=== PATIENT | female | born 1930 | race Caucasian/White ===

== ENCOUNTER 2016-04-25 17:41 | Inpatient (IN) | payer BC, OTHER ==
[~2016-04-25] VITALS: Ht 149.9 cm; Wt 63.5 kg
[~2016-04-25 17:41] MED LIST: ATENOLOL; BENAZEPRIL; LEVO500T15 PO
[2016-04-25] MEDS ORDERED: SODIUM CHLORIDE 0.9% 1,000 ML IV ONE (18:08)
[2016-04-25] MEDS ORDERED: MECLIZINE 25MG TABLET PO ONE (18:15)
[2016-04-25 18:51] LABS: BASOPHILS % 0.5 % (0.0-2.0); EOSINOPHILS % 2.2 % (0.0-5.0); HEMATOCRIT. 31.8 % (36.0-48.0); HEMOGLOBIN. 10.4 g/dL (12.0-16.0); LYMPHOCYTES % 15.7 % (20.0-50.0); MEAN CORPUSCULAR HEMOGLOBIN 28.3 pg (28.0-32.0); MEAN CORPUSCULAR HGB CONC 32.6 g/dL (31.0-37.0); MEAN PLATELET VOLUME 9.9 fl (7.4-10.4); MONOCYTES % 6.3 % (2.0-8.0); NEUTROPHILS % 75.3 % (40.0-76.0); PLATELET 164 x1000/uL (130-400); RED BLOOD CELL COUNT 3.66 mill/uL (4.2-5.4); RED CELL DISTRIBUTION WIDTH 14.6 % (11.6-14.6); WHITE BLOOD COUNT 5.4 x1000/uL (4.5-11.0)
[2016-04-25 18:55] LABS: CHLORIDE 111 mEq/L (98-107); INDEX HEMOLYSI 1 (1-3); INDEX ICTERIC 1 (1-4); INDEX LIPEMIC 1 (1-3)
[2016-04-25 19:04] LABS: ALANINE AMINOTRANSFERASE 17 IU/L (13-61); ALBUMIN 3.3 g/dL (3.4-5.0); ANION GAP 13; CALCIUM 8.8 mg/dL (8.5-10.1); CARBON DIOXIDE 24 mEq/L (21-32); ETHANOL BLOOD < 10 mg/dL; UREA NITROGEN BLOOD 35 mg/dL (7-21); eGFR 47 mL/min (>60)
[2016-04-25] MEDS ORDERED: ASPIRIN 325MG EC TABLET PO ONE (20:15)
[2016-04-25 21:51] LABS: GLUCOSE URINE TRACE (NEGATIVE); KETONES URINE NEGATIVE (NEGATIVE); LEUKOCYTE ESTERASE URINE NEGATIVE (NEGATIVE); NITRITE URINE NEGATIVE (NEGATIVE); OCCULT BLOOD URINE NEGATIVE (NEGATIVE); PH URINE 6.5 (4.5-8.0); PROTEIN URINE TRACE (NEGATIVE); SPECIFIC GRAVITY URINE 1.007 (1.005-1.030); UROBILINOGEN URINE 0.2 E.U./dL (0.2-1.0)
[2016-04-25 21:54] LABS: CLARITY URINE CLEAR (CLEAR); COLOR URINE STRAW (YELLOW)
[2016-04-25 22:05] LABS: *AMPHETAMINES SCREEN URINE NEGATIVE (NEGATIVE); *BARBITURATES SCREEN URINE NEGATIVE (NEGATIVE); *BENZODIAZEPINES SCREEN URINE NEGATIVE (NEGATIVE); *COCAINE SCREEN URINE NEGATIVE (NEGATIVE); CANNABINOID URINE SCREEN NEGATIVE (NEGATIVE); ECSTASY MDMA SCREEN URINE NEGATIVE (NEGATIVE); METHADONE URINE SCREEN NEGATIVE (NEGATIVE); OPIATES URINE SCREEN NEGATIVE (NEGATIVE); PHENCYCLIDINE URINE SCREEN NEGATIVE (NEGATIVE)
[2016-04-25 22:21] LABS: BACTERIA URINE NONE SEEN; RBC URINE 0-2 /hpf (0-2); SQUAMOUS EPITHELIAL CELL URINE RARE /lpf (RARE/1+); WBC URINE 0-2 /hpf (0-2)
[2016-04-25 23:45] VITALS: BP 140/55
[2016-04-26] VITALS (10 sets, daily range): BP systolic 106–162; BP diastolic 41–82
[2016-04-26] MEDS ORDERED: DEXTROSE 50% WATER 50ML SYRINGE IV PRN ×2 (00:15→04:15)
[2016-04-26] MEDS ORDERED: CLONIDINE 0.1MG TABLET PO PRN (00:15)
[2016-04-26] MEDS ORDERED: ACARBOSE PO (02:04)
[2016-04-26] MEDS ORDERED: GLIM1TAB2 PO (02:04)
[2016-04-26] MEDS ORDERED: HYDR-4134 PO (02:04)
[2016-04-26] MEDS ORDERED: PIOG30TA2 PO (02:04)
[2016-04-26] MEDS ORDERED: ASPI-1035 PO (02:04)
[2016-04-26] MEDS ORDERED: ATEN100T PO (02:04)
[2016-04-26] MEDS ORDERED: PLAVIX PO (02:04)
[2016-04-26] MEDS ORDERED: ATOR40TA70 PO (02:04)
[2016-04-26] MEDS ORDERED: GABA-531 PO (02:04)
[2016-04-26] MEDS ORDERED: VALS320T9 PO (02:04)
[2016-04-26] MEDS ORDERED: AMLO10TA80 PO (02:04)
[2016-04-26] MEDS: INSULIN LISPRO 100 UNITS/ML SUBCUT SCH ×4 (06:23→21:00)
[2016-04-26] MEDS: BLOOD SUGAR DIAGNOSTIC STRIP TEST SCH ×4 (06:23→21:00)
[2016-04-26] MEDS: HYDRALAZINE HCL 25MG TABLET PO SCH ×3 (06:50→21:25)
[2016-04-26 07:07] LABS: INDEX HEMOLYSI 1 (1-3); INDEX ICTERIC 1 (1-4); INDEX LIPEMIC 1 (1-3); IRON 42 ug/dL (50-175); TOTAL IRON BINDING CAPACITY 332 ug/dL (250-450)
[2016-04-26 07:25] LABS: INDEX HEMOLYSI 1 (1-3)
[2016-04-26 07:40] LABS: VITAMIN B12 SERUM 433 pg/mL (211-911)
[2016-04-26] MEDS ORDERED: INSULIN LISPRO 100 UNITS/ML SUBCUT SCH (08:20)
[2016-04-26] MEDS: AMLODIPINE 10MG TABLET PO SCH (09:00)
[2016-04-26] MEDS ORDERED: ATENOLOL 25MG TABLET PO SCH (09:00)
[2016-04-26] MEDS: ATENOLOL 100 MG TABLET PO SCH ×2 (09:00→21:25)
[2016-04-26] MEDS ORDERED: BLOOD SUGAR DIAGNOSTIC STRIP TEST SCH (09:00)
[2016-04-26] MEDS: CLOPIDOGREL 75MG TABLET PO SCH (10:09)
[2016-04-26] MEDS: ASPIRIN 81MG EC TABLET PO SCH (10:09)
[2016-04-26] MEDS: PIOGLITAZONE 30MG TABLET PO SCH (13:51)
[2016-04-26] MEDS: GLIMEPIRIDE 1MG TABLET PO SCH (13:51)
[2016-04-26] MEDS ORDERED: ATORVASTATIN CALCIUM 40MG TABLET PO SCH (17:00)
[2016-04-26] MEDS ORDERED: ATORVASTATIN CALCIUM 20MG TABLET PO SCH (21:00)
[2016-04-27] VITALS (10 sets, daily range): BP systolic 119–179; BP diastolic 47–86
[2016-04-27] MEDS: HYDRALAZINE HCL 25MG TABLET PO SCH (06:12)
[2016-04-27 06:23] LABS: BASOPHILS % 0.4 % (0.0-2.0); EOSINOPHILS % 3.4 % (0.0-5.0); HEMATOCRIT. 27.7 % (36.0-48.0); HEMOGLOBIN. 9.3 g/dL (12.0-16.0); LYMPHOCYTES % 28.9 % (20.0-50.0); MEAN CORPUSCULAR HEMOGLOBIN 29.3 pg (28.0-32.0); MEAN CORPUSCULAR HGB CONC 33.5 g/dL (31.0-37.0); MEAN CORPUSCULAR VOLUME 87.4 fL (81.0-99.0); MONOCYTES % 10.9 % (2.0-8.0); NEUTROPHILS % 56.4 % (40.0-76.0); PLATELET 140 x1000/uL (130-400); RED BLOOD CELL COUNT 3.17 mill/uL (4.2-5.4); RED CELL DISTRIBUTION WIDTH 14.9 % (11.6-14.6); WHITE BLOOD COUNT 4.4 x1000/uL (4.5-11.0)
[2016-04-27] MEDS: BLOOD SUGAR DIAGNOSTIC STRIP TEST SCH ×2 (06:30→12:12)
[2016-04-27] MEDS: INSULIN LISPRO 100 UNITS/ML SUBCUT SCH (07:20)
[2016-04-27 07:29] LABS: ALANINE AMINOTRANSFERASE 13 IU/L (13-61); ALBUMIN 2.7 g/dL (3.4-5.0); ANION GAP 13; CALCIUM 8.2 mg/dL (8.5-10.1); CARBON DIOXIDE 23 mEq/L (21-32); CHLORIDE 113 mEq/L (98-107); HDL CHOLESTEROL 35 mg/dL (40-59); INDEX HEMOLYSI 1 (1-3); INDEX ICTERIC 1 (1-4); INDEX LIPEMIC 1 (1-3); LDL CHOLESTEROL 58 mg/dL (5-100); T4 FREE 1.13 ng/dL (0.76-1.46); TRIGLYCERIDE 122 mg/dL (0-150); UREA NITROGEN BLOOD 28 mg/dL (7-21); eGFR 43 mL/min (>60)
[2016-04-27] MEDS: ATENOLOL 100 MG TABLET PO SCH (09:17)
[2016-04-27] MEDS: AMLODIPINE 10MG TABLET PO SCH (09:17)
[2016-04-27] MEDS: ASPIRIN 81MG EC TABLET PO SCH (09:17)
[2016-04-27] MEDS: PIOGLITAZONE 30MG TABLET PO SCH (09:17)
[2016-04-27] MEDS: CLOPIDOGREL 75MG TABLET PO SCH (09:17)
[2016-04-27] MEDS: GLIMEPIRIDE 1MG TABLET PO SCH (09:17)
== END 2016-04-27 12:40 | disposition home or self-care (01) | DRG 69 ==
LOC: ER 17:41 → 3WST 21:46
PROVIDERS: ADMIT Internal Medicine Critical Care Medicine; ATTEND Internal Medicine Critical Care Medicine
DX: G45.9 Transient cerebral ischemic attack, unspecified (principal); D50.9 Iron deficiency anemia, unspecified; E11.9 Type 2 diabetes mellitus without complications; R26.9 Unspecified abnormalities of gait and mobility; E11.51 Type 2 diabetes mellitus with diabetic peripheral angiopathy without gangrene; E78.5 Hyperlipidemia, unspecified; E11.649 Type 2 diabetes mellitus with hypoglycemia without coma; Z90.49 Acquired absence of other specified parts of digestive tract; Z79.4 Long term (current) use of insulin; Z98.41 Cataract extraction status, right eye; Z98.42 Cataract extraction status, left eye; Z98.890 Other specified postprocedural states; Z88.2 Allergy status to sulfonamides; Z88.5 Allergy status to narcotic agent; Z88.6 Allergy status to analgesic agent; Z83.3 Family history of diabetes mellitus
CPT/HCPCS: 36415; 70450; 70551; 80053; 80061; 80305; 81001; 82607; 82962; 83036; 83540; 83550; 84439; 84443; 85025; 93880; 96360; 96361; 97116; 97162; 97166; 99285; G0482; J7030; J8597

== ENCOUNTER 2017-02-21 20:37 | Emergency (ER) | payer BC ==
[~2017-02-21] VITALS: Ht 154.9 cm; Wt 57.0 kg
[~2017-02-21 20:37] MED LIST changes: +AMLO10TA80 PO; +ASPI-1159 PO; +ATEN100T PO; -ATENOLOL; +ATOR40TA70 PO; -BENAZEPRIL; +HYDR-4134 PO; -LEVO500T15 PO; +PLAVIX PO
[2017-02-21] MEDS ORDERED: SODIUM CHLORIDE 0.9% 1,000 ML IV ONE (23:10)
[2017-02-22 00:36] LABS: CARBON DIOXIDE 23 mEq/L (21-32); CHLORIDE 110 mEq/L (98-107); PHOSPHORUS 3.2 mg/dL (2.5-4.9); TROPONIN I < 0.02 ng/mL (0.00-0.04)
[2017-02-22 01:41] VITALS: BP 154/75
== END 2017-02-22 01:43 | disposition home or self-care (01) ==
LOC: ER 20:37 → EDBEDREQ 23:15 → ER 02-22 01:43 → CANBEDREQ 02-22 05:18
DX: E11.65 Type 2 diabetes mellitus with hyperglycemia (principal); G89.29 Other chronic pain; I10 Essential (primary) hypertension; J44.9 Chronic obstructive pulmonary disease, unspecified; Z86.73 Personal history of transient ischemic attack (TIA), and cerebral infarction without residual deficits; Z88.6 Allergy status to analgesic agent; Z88.2 Allergy status to sulfonamides; Z91.013 Allergy to seafood; Z79.82 Long term (current) use of aspirin
CPT/HCPCS: 36415; 71045; 80048; 82962; 83735; 83880; 84100; 84484; 96360; 99285; Z7610; J7030